=== PATIENT | female | born 1945 | race Caucasian/White ===

== ENCOUNTER 2021-04-19 13:25 | Outpatient (CLI) | payer MEDICARE, SELFPAY ==
[2021-04-19 13:44] LABS: Hematocrit 42.5 % (35.0-42.0); Hemoglobin 13.4 g/dL (11.7-13.8); Mean Corpuscular HGB Conc 31.5 g/dL (32.0-36.0); Mean Corpuscular Hemoglobin 29.4 pg (27.0-31.0); Mean Corpuscular Volume 93.2 fL (78.0-102.0); Mean Platelet Volume 8.9 fl (9.2-11.8); Platelet Count Result 267 K/mm3 (150-420); Red Blood Count 4.56 M/mm3 (4.20-5.40); Red Cell Distribution Width 13.9 % (11.6-14.4); White Blood Count 3.9 K/mm3 (4.8-10.8)
[2021-04-19 14:39] LABS: Alanine Aminotransferase 32 U/L (14-59); Albumin Level 3.7 g/dL (3.4-5.0); Alkaline Phosphatase 98 U/L (46-116); Anion Gap 6 mmol/L (8-16); Aspartate Amino Transferase 30 U/L (15-37); Bilirubin,Total 0.3 mg/dL (0.00-1.00); Blood Urea Nitrogen 14 mg/dL (7-18); Calcium 9.4 mg/dL (8.5-10.1); Carbon Dioxide 32 mmol/L (21-32); Chloride 104 mmol/L (98-108); Cholesterol 187 mg/dL (0-200); Estimated Glomerular Filt Rate 54; Glucose 92 mg/dL (70-99); HDL Direct 100 mg/dL (40-60); LDL Cholesterol Calculated 70 mg/dL (<130); Osmolality Calculated 294 mOsm/kg (285-295); Potassium 4.4 mmol/L (3.5-5.1); Sodium 142 mmol/L (136-145); Total Protein 6.9 g/dL (6.4-8.2); Triglycerides 87 mg/dL (0-150)
[2021-04-19 14:53] LABS: Thyroid Stimulating Hormone Reflex 7.33 u/IU/mL (0.36-3.74)
== END 2021-04-19 13:26 | disposition home or self-care (01) ==
LOC: CHSLAB 13:32
PROVIDERS: PCP Family Medicine; Visit Provider Family Medicine
DX: E11.9 Type 2 diabetes mellitus without complications (principal); E03.9 Hypothyroidism, unspecified; I10 Essential (primary) hypertension
CPT/HCPCS: 36415; 80053; 80061; 84439; 84443; 85027

== ENCOUNTER 2021-09-03 09:41 | Outpatient (CLI) | payer MEDICARE, MEDICAID, SELFPAY ==
--- NOTE | ~2021-09-03 | MR_ITS ---
EXAMINATION: MR brain/brain stem wo con DATE: 09/03/2021 11:08 INDICATION: Cerebellar dysmetria. TECHNIQUE: Magnetic resonance imaging (MRI) of the brain and brainstem was performed without intraven ous contrast. COMPARISON: None. FINDINGS: There are scattered areas of nonspecific increased T2-weighted signal intensity in the cere bral white matter. There are bilateral frontotemporal parietal subdural hematomas with maximum thickn ess of 4 mm on the right and 4 mm on the left. The hematomas are hypointense to odonnell matter on T1-azul ghted images and hyperintense to odonnell matter on T2-weighted images. There is no acute infarction or a bnormal intracranial mass lesion. The ventricles are normal in size. There are likely changes of ocul ar lens replacement surgeries. There is mild mucosal thickening in the paranasal sinuses. The mastoid air cells are normal. IMPRESSION: 1. Small bilateral subdural hematomas, likely subacute. 2. Mild nonspecific cerebral white matter disease, which likely represents chronic small vessel ische frances disease. Reviewed, dictated and finalized at location A. IMPRESSION: 1. Small bilateral subdural hematomas, likely subacute. 2. Mild nonspecific cerebral white matter disease, which likely represents psychology clinician tramaine small vessel ischemic disease.
== END 2021-09-03 09:42 | disposition home or self-care (01) ==
PROVIDERS: PCP Family Medicine; Visit Provider Family Medicine
DX: R27.8 Other lack of coordination (principal)
CPT/HCPCS: 70551

== ENCOUNTER 2021-09-07 21:41 | Emergency (ER) | payer MEDICARE, MEDICAID, SELFPAY ==
[2021-09-07] VITALS (9 sets, daily range): BP systolic 74–240; BP diastolic 56–149; PULSE 67–98; RESP 12–20; TEMP 36.3; O2SAT 92–99
--- NOTE | ~2021-09-07 | XR_ITS ---
EXAMINATION: XR chest 1V portable Exam Date/Time: 09/07/2021 22:20 CDT HISTORY: hypertension/ DIZZY X 2 MONTHS Comparison: 08/29/2007. RESULT: Lines, tubes, and devices: Tracheostomy tube, terminating at the frederick. Cholecystectomy clips. Multi ple suture lines in the right lung. Lungs and pleura: Biapical pleural scarring. Multiple bilateral calcified granulomas. Senescent nuñez ges. Cardiomediastinal silhouette: Stable cardiomediastinal silhouette. Other: No acute osseous or upper abdominal finding. IMPRESSION: No acute cardiopulmonary process. Deeply positioned tracheostomy tube, terminating at the frederick. Reviewed, dictated and finalized at location K. IMPRESSION: No acute cardiopulmonary process. Deeply positioned tracheostomy tube, terminat ing at the frederick.
--- NOTE | ~2021-09-07 | CT_ITS ---
EXAMINATION: CT brain wo con DATE: 09/07/2021 22:28 INDICATION: DIZZY X 2 MONTHS . TECHNIQUE: Computed tomography (CT) of the head was performed without intravenous contrast. The mA wa s adjusted according to patient size. Iterative reconstruction technique was employed. The dose-lengt h product was 605.33 mGy-cm. COMPARISON: None FINDINGS: No acute intracranial hemorrhage or extra-axial fluid collection. No hydrocephalus, mass, or herniation. No acute ischemic infarct. Unremarkable dural venous sinus attenuation. No acute osseous abnormality. Mildly mucosal thickening in the ethmoid air cells, left sphenoid sinus, and bilateral maxillary sinu ses, otherwise the aerated spaces are clear. Mild chronic white matter change. Atherosclerotic intracranial calcification. Bilateral lens replacem ents. Enlargement of the pituitary gland. Prominent bifrontal and biparietal extra-axial space. IMPRESSION: No acute intracranial process. Possible pituitary mass, consider nonemergent outpatient MRI of the pi tuitary for further evaluation. Prominent extra-axial space may be related to cerebral atrophy or thi n chronic subdural hematomas. Reviewed, dictated and finalized at location K. IMPRESSION: No acute intracranial process. Possible pituitary mass, consider nonemergent ou tpatient MRI of the pituitary for further evaluation. Prominent extra-axial spa ce may be related to cerebral atrophy or thin chronic subdural hematomas.
--- NOTE | 2021-09-07 21:46 | ED.HA ---
HPI - Headache General Chief Complaint: Headache Stated Complaint: high blood pressure Time Seen by Provider: 09/07/21 21:46 Source: patient History of Present Illness HPI Narrative: 76 -year-old with a history of hypothyroidism GERD, laryngeal cancer status post trach, bilateral subdural hematomas noted on MRI done 2 days ago, hypertension had a recent change blood pressure medications from lisinopril 30 mg daily to lisinopril/hydrochlorothiazide 20/[address] Mejia for incoordination for which he ordered an MRI which revealed the bilateral subacute subdural hematomas. She presents to the ER with a 1 hour history of -- elevated blood pressures with a systolic over 221/158 -- headache -- Nausea without any episodes of vomiting The patient had a fall this morning sitting on a lawn chair when she fell backwards. No loss of consciousness. MD elicited complaint: headache Pertinent past history: hypertension Onset description: suddenly Location: occipital Severity: moderate Quality & Timing: aching Exacerbating factors: none Relieving factors: nothing Context: occurred at rest Associated symptoms: none Treatments prior to arrival: none Related Data Allergies Allergy/AdvReac Type Severity Reaction Status Date / Time lorazepam [From Ativan] AdvReac Intermediate Vomiting Verified 09/07/21 22:30 morphine AdvReac Intermediate Vomiting Verified 09/07/21 22:30 omeprazole AdvReac Intermediate Burning Verified 09/07/21 22:30 Mouth Review of Systems Review of Systems: All systems reviewed & are unremarkable except as noted in HPI and below Constitutional: Constitutional: Reports as per HPI and Reports no additional constitutional complaints Eyes: Eyes: Reports as per HPI and Reports no additional eye complaints ENT: Reports system reviewed and no additional complaints, except as documented and Reports as per HPI Cardiovascular: Cardiovascular: Reports as per HPI and Reports no additional cardiovascular complaints Respiratory: Respiratory: Reports as per HPI and Reports no additional respiratory complaints Comments: status post trach Gastrointestinal: Gastrointestinal: Reports as per HPI and Reports no additional gastrointestinal complaints Genitourinary: Genitourinary: Reports no additional female genitourinary complaints and Reports as per HPI Musculoskeletal: Musculoskeletal: Reports no additional musculoskeletal complaints and Reports as per HPI Integumentary/Breasts: Skin/Breast: Reports system reviewed and no additional complaints, except as docu Neurologic: Reports system reviewed and no additional complaints, except as documented, Reports as per HPI and Reports headache(s) Psychiatric: Psychiatric: Reports no additional psychiatric complaints and Reports as per HPI Endocrine: Endocrine: Reports no additional endocrine complaints and Reports as per HPI Hematologic/Lymphatic: Hematologic/Lymphatic: Reports no additional hematologic/lymphatic complaints and Reports as per HPI Allergic/Immunologic: Allergic/Immunologic: Reports no additional allergic/immunologic complaints and Reports as per HPI [facility] Surgical History Surgical History H/O cataract extraction DIONNE Social History Social History Smoking status: Never smoker Alcohol intake: never Substance use: never Substance use type: does not use Gender identity (if verbalized by the patient): Female Exam Const: General: no acute distress Nutritional Appearance: thin Orientation/consciousness: patient oriented x3 Limitations: no limitations HENMT: Head: normal to inspection Ears: external ears normal General nose exam: Normal external nose present Face and sinus: normal facial exam Mouth: Yes Normal oral and palatal mucosa present Throat: posterior oropharynx normal Eyes: Conjunctivae: conjunctivae normal Pu
[2021-09-07] MEDS: cloNIDine HCL 0.2 MG TABLET PO (21:55)
--- NOTE | 2021-09-07 22:01 | ECG_ITS ---
Measurements Intervals [place] Rate: 90 P: 65 MT: 170 QRS: 4 QRSD: 89 T: 48 QT: 347 QTc: 426 Interpretive Statements SINUS RHYTHM RSR' IN V1 OR V2, PROBABLY NORMAL VARIANT VOLTAGE CRITERIA FOR LVH MINIMAL Q WAVES- HIGH LATERAL LEADS BORDERLINE ECG Electronically Signed On 09-07-2021 22:58:00 CDT by Hugh Andrew D.O.
[2021-09-07 22:14] LABS: Basophils Absolute Auto 0.04 K/mm3 (0.00-0.10); Basophils Percent Auto 0.8 % (0.0-1.0); Eosinophils Absolute Auto 0.16 K/mm3 (0.02-0.50); Eosinophils Percent Auto 3.4 % (1.0-6.0); Hematocrit 42.3 % (35.0-42.0); Hemoglobin 13.8 g/dL (11.7-13.8); Immature Granulocyte Absolute 0.01 K/mm3 (0.00-0.00); Immature Granulocyte Percent A 0.2 % (0.0-0.0); Lymphocytes Absolute Auto 1.64 K/mm3 (1.10-4.50); Lymphocytes Percent Auto 34.8 % (18.0-42.0); Mean Corpuscular HGB Conc 32.6 g/dL (32.0-36.0); Mean Corpuscular Hemoglobin 30.3 pg (27.0-31.0); Mean Corpuscular Volume 92.8 fL (78.0-102.0); Mean Platelet Volume 8.7 fl (9.2-11.8); Monocytes Absolute Auto 0.67 K/mm3 (0.10-0.90); Monocytes Percent Auto 14.2 % (2.0-11.0); Neutrophils Absolute Auto 2.2 K/mm3 (1.7-7.2); Neutrophils Percent Auto 46.6 % (50.0-70.0); Platelet Count Result 252 K/mm3 (150-420); Red Blood Count 4.56 M/mm3 (4.20-5.40); Red Cell Distribution Width 13.2 % (11.6-14.4); White Blood Count 4.7 K/mm3 (4.8-10.8)
[2021-09-07 22:27] LABS: INR 0.9; Partial Thromboplastin Time 25.3 SEC (23.90-30.70)
[2021-09-07 22:36] LABS: Alanine Aminotransferase 28 U/L (14-59); Albumin Level 3.8 g/dL (3.4-5.0); Alkaline Phosphatase 114 U/L (46-116); Anion Gap 5 mmol/L (8-16); Aspartate Amino Transferase 27 U/L (15-37); Bilirubin,Total 0.3 mg/dL (0.00-1.00); Blood Urea Nitrogen 12 mg/dL (7-18); Calcium 9.6 mg/dL (8.5-10.1); Carbon Dioxide 33 mmol/L (21-32); Chloride 99 mmol/L (98-108); Estimated CRCL calculation 48 ml/min; Estimated Glomerular Filt Rate > 60; Glucose 121 mg/dL (70-99); Osmolality Calculated 284 mOsm/kg (285-295); Potassium 2.8 mmol/L (3.5-5.1); Sodium 137 mmol/L (136-145); Thyroid Stimulating Hormone 7.17 uIU/mL (0.36-3.74)
[2021-09-07 22:41] LABS: Total Protein 7.7 g/dL (6.4-8.2); Troponin I 77.9 ng/L (0.00-60.4)
[2021-09-07 22:57] LABS: NT Pro B Type Natriuretic Pept 223 pg/mL (0-125)
--- NOTE | 2021-09-07 23:00 | PC.NURSE ---
While checking on pt, Pt and her daughter states that pt had a fall out of her lawn chair earlier today and hit the back of her head. Pt denies any LOC from the fall.
[2021-09-07 23:04] LABS: Magnesium 1.9 mg/dL (1.8-2.4)
[2021-09-07] MEDS: SPIRONOLACTONE 25 MG TABLET PO (23:06)
[2021-09-07] MEDS: POTASSIUM CHLORIDE 20 MEQ TABLET 40 MEQ PO (23:07)
[2021-09-07] MEDS: LABETALOL HCL INJ 100 MG/20 ML VIAL 10 MG IV PUSH (23:08)
[2021-09-07] MEDS: KCL 20 MEQ/SW 100 ML 100 ML 50 MEQ IVPB (23:17)
--- NOTE | 2021-09-07 23:26 | PC.NURSE ---
Pt and her daughter states pt has doctors at [place] and would like to be transferred to back to [facility]. RN called [facility] transfer center and attempted to find placement. Joleen from transfer center took pt's information and spoke to ERP.
[2021-09-07] MEDS: SODIUM CHLORIDE 0.9% IV 500 ML 999 ML IV CONT (23:45)
[2021-09-08] VITALS (24 sets, daily range): BP systolic 72–181; BP diastolic 51–114; PULSE 64–79; RESP 12–20; TEMP 37.1; O2SAT 91–99
--- NOTE | 2021-09-08 00:11 | PC.NURSE ---
[facility] Neurology Surgery team and transfer center returned call and spoke to Dr. Fu.
--- NOTE | 2021-09-08 01:15 | PC.NURSE ---
RN called [facility] transfer line and spoke to Haseeb. After giving pt info she states she will be returning a call to inform if there are beds available and to have the ERP speak to their hospitalist.
--- NOTE | 2021-09-08 01:40 | PC.NURSE ---
RN received call from [facility] saying that at this time [facility] cannot accommodate.
--- NOTE | 2021-09-08 01:42 | PC.NURSE ---
RN called [facility] for a possible transfer. The [facility] states that all beds are full and would be waitlisted for 2 to 3 days.
--- NOTE | 2021-09-08 01:47 | PC.NURSE ---
RN called [facility] for possible transfer. [facility], Amanda, states that all beds are full and pt will be placed on waitlist.
--- NOTE | 2021-09-08 01:53 | PC.NURSE ---
RN called [facility] and spoke to Sherry to attempt a transfer. Pt is placed placed on wait list.
--- NOTE | 2021-09-08 02:03 | PC.NURSE ---
RN called [facility] to place pt on waitlist. [facility] center, Kay, spoke to ERP. RN also asked pt if she would want to be transferred to [facility] in [place], but pt and daughter declined transfer.
[2021-09-08] MEDS: GLUCAGON FOR INJ 1 MG VIAL IV PUSH (02:12)
--- NOTE | 2021-09-08 02:15 | PC.NURSE ---
When asked about code status pt states she is a full code.
[2021-09-08 02:43] LABS: SARS-CoV-2 Ag Negative (Negative)
--- NOTE | 2021-09-08 02:44 | PC.NURSE ---
Joleen with [facility] transfer center says that [facility] still needs to speak with neurology surgery team but would not be able to talk to them till the morning. Joleen states she will still be attempting to find a bed and will call with any updates.
== END 2021-09-08 05:15 | disposition short-term general hospital (02) ==
PROVIDERS: Emergency Provider Internal Medicine Critical Care Medicine; PCP Family Medicine
DX: S06.5X9A Traumatic subdural hemorrhage with loss of consciousness of unspecified duration, initial encounter (principal); I16.0 Hypertensive urgency; E87.6 Hypokalemia; R79.9 Abnormal finding of blood chemistry, unspecified; R51.9 Headache, unspecified
CPT/HCPCS: 36415; 70450; 71045; 80053; 83735; 83880; 84443; 84484; 85025; 85610; 85730; 87426; 93005; 96365; 96366; 96367; 96375; 99285; A9270; C9803; J1610; J2370; J3480; J7040; J7050; J7060

== ENCOUNTER 2022-02-27 12:47 | Emergency (ER) | payer MEDICARE, MEDICAID, SELFPAY ==
[2022-02-27] VITALS (31 sets, daily range): BP systolic 85–151; BP diastolic 48–106; PULSE 71–85; RESP 12–20; TEMP 35.8; O2SAT 84–100
--- NOTE | ~2022-02-27 | XR_ITS ---
EXAMINATION: XR chest 2V DATE: 02/27/2022 14:50 INDICATION: Dizziness. Weakness. Right flank pain. TECHNIQUE: Frontal and lateral views of the chest were obtained. COMPARISON: Chest single view 09/07/2021, chest CT 02/21/2008 FINDINGS: There is mild scarring at the lung apices. There is mild scarring at left lung base. Calcif ied pulmonary nodules and calcified hilar and mediastinal lymph nodes are are consistent with old gra nulomatous disease. Staple lines overlie right lung. No pleural effusion or pneumothorax. The heart s ize is normal. Surgical clips in the right upper quadrant are likely from cholecystectomy. A tracheos rafy tube is noted. IMPRESSION: 1. Stable mild scarring at the lung apices and left lung base. Reviewed, dictated and finalized at location A. ALS INTELLIGENCE SUPERINTENDENT
--- NOTE | 2022-02-27 13:30 | ED.GENADULT ---
HPI - General Adult General Chief complaint: Unspecified Stated complaint: epigastric pain Time Seen by Provider: 02/27/22 13:01 Source: patient and family ( DAUGHTER ONEAL) Mode of arrival: ambulatory Limitations: language barrier ( PATIENT HAS A TRACH TO COMMUNICATE WITH HER HANDS OR GREASE BOARD) History of Present Illness HPI narrative: PATIENT IS A 76-YEAR-OLD PLEASANT WHITE FEMALE APPEARS IN NO APPARENT DISTRESS COMPLAINING OF EPIGASTRIC PAIN SHE RATES AN 8/10 SAYS IS BETTER IT HAS BEEN BETTER SINCE SHE HAD TYLENOL P.M.. SHE HAS HAD A HEADACHE FOR THE LAST WEEK SHE RATES A 5/10 IN SEVERITY ALSO BETTER WITH TYLENOL. SHE HAD SOME BACK ACHE FOR A WEEK AGO IT IS GONE NOW AFTER TAKING THE TYLENOL SHE HAS HAD A COUGH BUT NOT CURRENTLY DENIES ANY FEVER PROBLEMS BREATHING CHEST PAIN PROBLEMS URINATING. SHE HAD SOME NAUSEA DRY HEAVES X1 THIS MORNING BUT HAS BEEN DRINKING FINE. NOT BEEN EATING THAT MUCH FEELS GENERALIZED WEAKNESS AND TIRED. SHE HAS CHRONIC DIZZINESS THAT SHE SAYS IS A LITTLE BIT WORSE NOW. Related Data Home Medications Medication Instructions Recorded Confirmed vitamin with calcium 1 tablet PO DAILY 02/27/22 02/27/22 no.72-iron 27 mg-folic acid 1 mg tablet (WesTab Plus) Allergies Allergy/AdvReac Type Severity Reaction Status Date / Time lorazepam [From Ativan] AdvReac Intermediate Vomiting Verified 02/27/22 12:57 morphine AdvReac Intermediate Vomiting Verified 02/27/22 12:57 omeprazole AdvReac Intermediate Burning Verified 02/27/22 12:57 Mouth Review of Systems Constitutional: Constitutional: Denies anorexia, Denies body ache(s), Denies chills, Denies difficulty sleeping, Reports fatigue, Denies fever(s), Reports headache(s), Reports increased appetite, Reports lethargy, Reports malaise and Reports weakness ( GENERALIZED WEAKNESS) Eyes: Eyes: Reports no additional eye complaints ENT: Reports dysphagia ( SHE HAS A TRACH BUT SHE IS ABLE TO SWALLOW. THIRTY YEARS AGO SHE HAD LUCY), Reports dizziness, Reports headache(s) and Denies nasal discharge Cardiovascular: Cardiovascular: Reports as per HPI, Reports no additional cardiovascular complaints, Denies chest pain and Denies dyspnea Respiratory: Respiratory: Reports as per HPI, Reports no additional respiratory complaints, Reports cough and Denies dyspnea Gastrointestinal: Gastrointestinal: Reports as per HPI Genitourinary: Genitourinary: Reports no additional female genitourinary complaints and Reports as per HPI Musculoskeletal: Comments: COMPLAINS OF GENERALIZED WEAKNESS BUT NO WEAKNESS IN HER ARMS OR LEGS. Integumentary/Breasts: Skin/Breast: Denies rash Neurologic: Reports system reviewed and no additional complaints, except as documented, Reports as per HPI and Reports dizziness Hematologic/Lymphatic: Hematologic/Lymphatic: Denies easy bleeding and Denies easy bruising PMFSH Surgical History Surgical History H/O cataract extraction DIONNE Social History Social History Smoking status: Never smoker Alcohol intake: never Substance use: never Substance use type: does not use Gender identity (if verbalized by the patient): Female Exam Narrative: PATIENT IS A PLEASANT WHITE FEMALE SHE HAS A TRACH SO SHE SPEAKS WITH HER HANDS AND ON A WHITE BOARD. APPEARS IN NO APPARENT DISTRESS EYES CONJUNCTIVA PINK SCLERA NONICTERIC HEAD IS NORMOCEPHALIC ATRAUMATIC. OROPHARYNX IS CLEAR WITH MOIST MUCOUS MEMBRANES NECK IS SHE HAS GOT A TRACH. NO LYMPHADENOPATHY LUNGS SHOW SOME WHEEZES ON THE LEFT POSTERIOR LUNG AND LEFT ANTERIOR LUNG. SHE HAS FAIR AIR EXCHANGE, NO RHONCHI OR WHEEZE RALES. HEART IS REGULAR RATE AND RHYTHM WITHOUT MURMURS GALLOPS RUBS. ABDOMEN SOFT AND NONTENDER NO HEPATOSPLENOMEGALY OR MASSES NO CVA TENDERNESS NO ABDOMINAL BRUITS. EXTREMITIES NO CYANOSIS CLUBBING OR EDEMA. SHE HAS FULL RANGE O
--- NOTE | 2022-02-27 13:33 | ECG_ITS ---
Measurements Intervals [place] Rate: 81 P: 89 [place]: 179 QRS: 44 QRSD: 78 T: 63 QT: 366 QTc: 427 Interpretive Statements SINUS RHYTHM LEFT VENTRICULAR HYPERTROPHY BASELINE WANDER- II, III, AVR, AVL, AVF BORDERLINE ECG COMPARED TO ECG 09/07/2021 22:08:37 NO SIGNIFICANT CHANGES Electronically Signed On 02-27-2022 13:41:21 GLASS SCIENCE ENGINEER by Hugh Andrew D.O.
[2022-02-27 13:55] LABS: Hemoglobin 13.9 g/dL (11.7-13.8); Mean Corpuscular HGB Conc 32.3 g/dL (32.0-36.0); Mean Corpuscular Hemoglobin 29.8 pg (27.0-31.0); Mean Corpuscular Volume 92.1 fL (78.0-102.0); Mean Platelet Volume 8.6 fl (9.2-11.8); Platelet Count Result 247 K/mm3 (150-420); Red Blood Count 4.67 M/mm3 (4.20-5.40); Red Cell Distribution Width 13.4 % (11.6-14.4); White Blood Count 5.8 K/mm3 (4.8-10.8)
[2022-02-27] MEDS: SODIUM CHLORIDE 0.9% IV 1,000 ML 999 ML IV CONT (14:00)
[2022-02-27] MEDS: ONDANSETRON INJ 4 MG/2 ML VIAL IV PUSH (14:00)
--- NOTE | 2022-02-27 14:09 | PC.NURSE ---
PT IS SITTING ON STRETCHER WITH FAMILY AT BEDSIDE. NAD NOTED. IVF INFUSING ORDERED WITHOUT DIFFICULTY. PT IS AWAITING LAB RESULTS. PT DENIES ANY NEEDS OR COMPLAINTS AT THIS TIME. WILL CONTINUE TO MONITOR.
[2022-02-27 14:15] LABS: Lactic Acid Reflex 0.7 mmol/L (0.4-2.0)
[2022-02-27 14:16] LABS: Add Urine Microscopic? YES; Appearance Urine Clear (Clear); Bilirubin Urine Negative (Negative); Blood Urine Negative (Negative); Color Urine Light Yellow (Yellow); Glucose Urine UA Negative (Negative); Ketones Urine Negative (Negative); Leukocyte Esterase Ur Trace (Negative); Nitrate Urine Negative (Negative); Protein Urine Negative (Negative); Urobilinogen Urine 0.2 mg/dL (0.2-1.0)
[2022-02-27 14:23] LABS: Bacteria Urine Trace /hpf; RBC Urine None seen /hpf (0-2); Squamous Epithelial Cell Urine Rare /hpf (Few); WBC Urine 0-3 /hpf (0-3)
[2022-02-27 14:24] LABS: Alanine Aminotransferase 120 U/L (14-59); Albumin Level 3.9 g/dL (3.4-5.0); Alkaline Phosphatase 143 U/L (46-116); Anion Gap 5 mmol/L (8-16); Aspartate Amino Transferase 120 U/L (15-37); Bilirubin,Total 0.6 mg/dL (0.00-1.00); Blood Urea Nitrogen 25 mg/dL (7-18); Calcium 9.9 mg/dL (8.5-10.1); Carbon Dioxide 34 mmol/L (21-32); Chloride 95 mmol/L (98-108); Estimated CRCL calculation 26 ml/min; Estimated Glomerular Filt Rate 36; Glucose 109 mg/dL (70-99); Lipase 34 U/L (16-77); Osmolality Calculated 283 mOsm/kg (285-295); Potassium 3.3 mmol/L (3.5-5.1); Sodium 134 mmol/L (136-145); Troponin I 89.3 ng/L (0.00-60.4)
[2022-02-27 14:25] LABS: Thyroid Stimulating Hormone 3.47 uIU/mL (0.36-3.74)
[2022-02-27 14:30] LABS: Influenza A QL RT-PCR Negative (Negative); Influenza B QL RT-PCR Negative (Negative); SARS-CoV-2 RNA PCR Negative (Negative)
--- NOTE | 2022-02-27 14:34 | PC.NURSE ---
PT IS LAUGHING AND TALKING WITH FAMILY AT BEDSIDE. NAD NOTED. PT DENIES ANY COMPLAINTS. WILL CONTINUE TO MONITOR. ELEVATED TROPONIN WAS CALLED PER LAB, ERP IS AWARE.
[2022-02-27 14:39] LABS: RSV RNA, RT-PCR Negative (Negative)
--- NOTE | 2022-02-27 14:42 | PC.NURSE ---
PT IS IN XRAY AT THIS TIME.
[2022-02-27] MEDS: POTASSIUM BICARBONATE 25 MEQ TABEF 50 MEQ PO (15:04)
[2022-02-27] MEDS: IPRATROPIUM 0.5 MG/ALBUTEROL SULFATE 2.5 MG AMPUL.NEB 3 ML INHALATION (15:05)
--- NOTE | 2022-02-27 16:05 | PC.NURSE ---
PT IS AWAITING REPEAT TROPONIN LEVEL AT THIS TIME. NAD NOTED. DAUGHTER AT BEDSIDE. WILL CONTINUE TO MONITOR.
[2022-02-27 16:19] LABS: Troponin I 83.1 ng/L (0.00-60.4)
--- NOTE | 2022-02-27 16:51 | ED.GENADULT ---
HPI - General Adult General Chief complaint: Unspecified Stated complaint: epigastric pain Time Seen by Provider: 02/27/22 13:01 Source: patient and family ( DAUGHTER ONEAL) Mode of arrival: ambulatory Limitations: language barrier ( PATIENT HAS A TRACH TO COMMUNICATE WITH HER HANDS OR GREASE BOARD) History of Present Illness HPI narrative: PATIENT IS A 76-YEAR-OLD WHITE FEMALE PRESENTS TO THE ER COMPLAINING OF EPIGASTRIC PAIN WHICH WAS 8/10 IN SEVERITY THAT IS BETTER NOW AFTER TAKING TYLENOL P.M.. SHE ALSO HAD A HEADACHE WHICH ALSO HAS BETTER THAT SHE HAS HAD FOR A WEEK SHE RATED A 5/10 IN SEVERITY SHE TOOK TYLENOL FOR THIS WELL. SHE HAS HAD SOME LOWER BACK PAIN FOR THE LAST WEEK ALSO IMPROVED WITH TYLENOL. DENIES ANY FEVER, CHILLS COMPLAINS OF TIREDNESS AND GENERALIZED WEAKNESS HE IS DRINKING OKAY BUT HAS NOT BEEN EATING ALL THAT WELL. HE IS NAUSEATED AND VOMITED ONCE TODAY DRY HEAVES. SHE DENIES ANY DIZZINESS , URINARY SYMPTOMS, BLEEDING OR BRUISING, SHORTNESS OF BREATH. SHE HAS HAD A LITTLE COUGH. 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 HAS HAD A HISTORY OF COVID. Related Data Home Medications Medication Instructions Recorded Confirmed vitamin with calcium 1 tablet PO DAILY 02/27/22 02/27/22 no.72-iron 27 mg-folic acid 1 mg tablet (WesTab Plus) Allergies Allergy/AdvReac Type Severity Reaction Status Date / Time lorazepam [From Ativan] AdvReac Intermediate Vomiting Verified 02/27/22 12:57 morphine AdvReac Intermediate Vomiting Verified 02/27/22 12:57 omeprazole AdvReac Intermediate Burning Verified 02/27/22 12:57 Mouth Review of Systems Constitutional: Constitutional: Reports no additional constitutional complaints, Reports fatigue, Denies fever(s), Denies headache(s), Reports increased appetite, Reports lethargy, Reports malaise and Reports poor appetite Eyes: Eyes: Reports no additional eye complaints ENT: Reports system reviewed and no additional complaints, except as documented and Denies sore throat Cardiovascular: Cardiovascular: Reports no additional cardiovascular complaints, Denies chest pain and Denies dyspnea Respiratory: Respiratory: Reports cough and Denies dyspnea on exertion Gastrointestinal: Gastrointestinal: Reports abdominal pain, Reports nausea and Reports vomiting Musculoskeletal: Musculoskeletal: Reports no additional musculoskeletal complaints, Denies back pain, Denies neck pain and Denies numbness Integumentary/Breasts: Skin/Breast: Denies rash Neurologic: Denies dizziness [facility] Surgical History Surgical History H/O cataract extraction DIONNE Social History Social History Smoking status: Never smoker Alcohol intake: never Substance use: never Substance use type: does not use Gender identity (if verbalized by the patient): Female Exam Narrative: PLEASANT WHITE FEMALE SHE APPEARS IN NO APPARENT DISTRESS. NONVERBAL BECAUSE OF A TRACHEOSTOMY COMMUNICATES WITH HER HANDS AND A WHITE BOARD. EYES CONJUNCTIVA PINK SCLERA NONICTERIC OROPHARYNX IS CLEAR WITH MOIST MUCOUS MEMBRANES NECK IS SUPPLE TRACHEOSTOMY. LUNGS SHOW WHEEZES ON LEFT ANTERIOR AND POSTERIOR LUNG [place]. WITH FAIR AIR EXCHANGE. HEART IS REGULAR RATE AND RHYTHM WITHOUT MURMURS GALLOPS OR RUBS. ABDOMEN IS SOFT AND NONTENDER NO HEPATOSPLENOMEGALY OR MASSES NO CVA TENDERNESS NO SUPRAPUBIC TENDERNESS. NEGATIVE STRAIGHT LEG RAISE BILATERALLY NEGATIVE INTERNAL OBTURATOR SIGN. SKIN IS WARM AND DRY. NEUROLOGICAL SHE IS ALERT AND ORIENTED X4 MOTOR AND SENSORY GROSSLY INTACT. Course Vital Signs Vital signs: Vital Signs Temperature 35.8 C L 02/27/22 12:47 Pulse Rate 83 02/27/22 12:47 Respiratory Rate 18 02/27/22 12:47 Blood Pressure 151/106 H 02/27/22 12:47 Pulse Oximetry 9
[2022-03-04 13:20] LABS: Hepatitis A Antibody IgM Nonreactive; Hepatitis B Core Antibody Nonreactive (Nonreactive); Hepatitis B Surface Antigen Nonreactive (Nonreactive); Hepatitis C Signal to Cutoff 0.06 ratio (<1.00); Hepatitis C Virus Antibody Nonreactive (Nonreactive)
--- NOTE | 2022-03-05 14:00 | PC.NURSE ---
final blood cultures reviewed. no growth after 5 days. no change in care plan
== END 2022-02-27 16:50 | disposition home or self-care (01) ==
PROVIDERS: Emergency Provider Emergency Medicine; PCP Family Medicine
DX: N39.0 Urinary tract infection, site not specified (principal); E86.0 Dehydration; R79.89 Other specified abnormal findings of blood chemistry; J06.9 Acute upper respiratory infection, unspecified; Z93.0 Tracheostomy status; Z79.899 Other long term (current) drug therapy; Z20.822 Contact with and (suspected) exposure to COVID-19
CPT/HCPCS: 36415; 71046; 80053; 80074; 81001; 83605; 83690; 84443; 84484; 85027; 86803; 87040; 87086; 87088; 87637; 93005; 94640; 96361; 96374; 99284; A9270; J2405; J7030

== ENCOUNTER 2022-03-09 10:05 | Outpatient (CLI) | payer MEDICARE, MEDICAID, SELFPAY ==
--- NOTE | ~2022-03-09 | US_ITS ---
US abdomen complete DATE: 03/09/2022 11:27 INDICATION: Abdominal pain TECHNIQUE: Real-time and color-flow imaging and Doppler analysis COMPARISON: 02/21/2008 CT thorax FINDINGS: A CT thorax dated 02/21/2008 reveals postoperative change from cholecystectomy. The gallbladd er fossa is unremarkable. The common bile duct measures 9 mm which may be within normal limits for th is 76-year-old male post cholecystectomy. No intrahepatic bile duct dilatation is evident. No hepatic space-occupying mass lesion is detected. Normal hepatopedal portal venous flow direction. No pancreatic mass lesion is noted. No renal mass lesion or hydronephrosis is detected. Splenic size is normal. Normal caliber of the abdominal aorta. The inferior vena cava is unremarkable. IMPRESSION: Status post cholecystectomy Reviewed, dictated and finalized at Location A. Reviewed, dictated and finalized at location L. LE HEALTH VEHICLE OPERATOR IMPRESSION: Status post cholecystectomy
[2022-03-09 10:25] LABS: Hematocrit 38.3 % (35.0-42.0); Hemoglobin 12.3 g/dL (11.7-13.8); Mean Corpuscular HGB Conc 32.1 g/dL (32.0-36.0); Mean Corpuscular Hemoglobin 30.1 pg (27.0-31.0); Mean Corpuscular Volume 93.9 fL (78.0-102.0); Mean Platelet Volume 8.6 fl (9.2-11.8); Platelet Count Result 243 K/mm3 (150-420); Red Blood Count 4.08 M/mm3 (4.20-5.40); Red Cell Distribution Width 13.4 % (11.6-14.4)
[2022-03-09 11:08] LABS: Alanine Aminotransferase 32 U/L (14-59); Albumin Level 3.6 g/dL (3.4-5.0); Alkaline Phosphatase 90 U/L (46-116); Anion Gap 8 mmol/L (8-16); Aspartate Amino Transferase 28 U/L (15-37); Bilirubin,Total 0.3 mg/dL (0.00-1.00); Blood Urea Nitrogen 13 mg/dL (7-18); CRP < 0.5 mg/dL (0.0-0.9); Calcium 9.2 mg/dL (8.5-10.1); Carbon Dioxide 32 mmol/L (21-32); Chloride 103 mmol/L (98-108); Estimated Glomerular Filt Rate > 60; Glucose 122 mg/dL (70-99); Lipase 28 U/L (16-77); Osmolality Calculated 297 mOsm/kg (285-295); Potassium 4.2 mmol/L (3.5-5.1); Sodium 143 mmol/L (136-145); Total Protein 6.8 g/dL (6.4-8.2)
== END 2022-03-09 10:06 | disposition home or self-care (01) ==
LOC: CHSLAB 10:07
PROVIDERS: PCP Family Medicine; Visit Provider Family Medicine
DX: R10.9 Unspecified abdominal pain (principal); Z90.49 Acquired absence of other specified parts of digestive tract
CPT/HCPCS: 36415; 76700; 80053; 83690; 85027; 86140